=== PATIENT | male | born 1980 | race Caucasian/White ===

== ENCOUNTER 2021-11-27 09:51 | Outpatient (CLI) | payer MEDICAID, SELFPAY ==
--- NOTE | 2021-11-27 10:15 | USCV_ITS ---
BEATALANE GONSALEZ Age: 41 Gender: M : 1980 Exam Date: 11/27/2021 10:18 Ordering Phys: Susannah Melendez Technologist: Dejuan Estrada Exam Location: [facility] [place] Indication: HTN Aortic Velocity @ SMA (cm/s) 86.1 RIGHT KIDNEY LEFT KIDNEY Velocity (cm/s) Velocity (cm/s) Sys/Henderson Sys/Henderson Resistive Index Resistive Index 63.7 / 18.8 0.71 Proximal Renal Artery 113.3 / 28.3 0.75 63.7 / 21.2 0.67 Mid Renal Artery 101.5 / 29.5 0.71 57.2 / 17.2 0.70 Distal Renal Artery 80.7 / 20.8 0.74 82.5 / 23.7 0.71 Hilar 69.4 / 23.4 0.66 38.0 / 10.9 0.71 Upper Pole 55.5 / 17.4 0.69 34.5 / 10.2 0.70 Mid Pole 68.6 / 22.6 0.67 36.6 / 11.6 0.68 Lower Pole 66.0 / 23.4 0.64 0.70 Renal Aortic Ratio 1.32 Accleration Index (cm/sec2) 1992.0 Hilar 1603.0 0 0 910.00 Upper Pole 1423.0 0 1532.0 Mid Pole 3624.0 0 0 1082.0 Lower Pole 2327.0 0 0 111.8 Kidney Length (mm) 125.3 CONCLUSIONS No sonographic evidence of hemodynamically significant renal artery stenosis bilaterally. Normal Resistive indices. Rt kidney measures 11.1cm Lt kidney measures 12.5cm Yohan Santoro MD (Electronically Signed) Final Date: 01 December 2021 12:15 S
== END 2021-11-27 09:52 | disposition home or self-care (01) ==
LOC: RAD 09:59
PROVIDERS: PCP Nurse Practitioner Family; Visit Provider Nurse Practitioner Family
DX: I10 Essential (primary) hypertension (principal)
CPT/HCPCS: 93975

== ENCOUNTER 2022-05-03 13:54 | Outpatient (CLI) | payer OTHER, SELFPAY ==
--- NOTE | 2022-05-03 14:15 | XR_ITS ---
WS: [id number] LEFT FOOT: 3 VIEW(S) TECHNIQUE: AP, oblique and lateral. HISTORY: PAIN IN LEFT FOOT COMPARISON: None available. No acute fracture or dislocation. Normal tarsal/metatarsal alignment. No soft tissue abnormality or bone destruction. XR/XR foot LT min 3V* [id number] IMPRESSION: Normal LEFT foot.
== END 2022-05-03 13:55 | disposition home or self-care (01) ==
LOC: RAD 14:02
PROVIDERS: PCP Nurse Practitioner Family; Visit Provider Nurse Practitioner Family
DX: M79.672 Pain in left foot (principal)
CPT/HCPCS: 73630

== ENCOUNTER → 2022-07-28 11:54 | Outpatient (BNVA) | payer MEDICAID, SELFPAY | PROVIDERS: PCP Nurse Practitioner Family; Visit Provider Internal Medicine | DX: R76.8 Other specified abnormal immunological findings in serum; M79.642 Pain in left hand; M79.641 Pain in right hand; M25.50 Pain in unspecified joint; Z11.59 Encounter for screening for other viral diseases | CPT/HCPCS: 72202; 73120; 99203; 99204 ==